=== PATIENT | female | born 1970 | race Caucasian/White ===

== ENCOUNTER → 2017-12-21 | Outpatient (CLI) | payer OTHER ==
--- NOTE | 2017-12-21 09:15 | US ---
EXAMINATION TYPE: US liver DATE OF EXAM: 12/21/2017 COMPARISON: NONE CLINICAL HISTORY: 47-year-old female R94.5 Abnormal Liver Functions studies. ABNORMAL LFT'S, NAUSEA, ABD PRESSURE TECHNIQUE: Multiple sonographic images of the right upper quadrant. FINDINGS: MEMBERSHIP COORDINATOR NOTES: overlying bowel gas limits exam EXAM MEASUREMENTS: Liver Length: 15.4 cm Gallbladder Wall: 0.2 cm CBD: 0.3 cm Right Kidney: 9.3 x 3.6 x 4.4 cm Pancreas: A small portion of the pancreatic body is seen. Remainder suboptimally visualized secondar y to shadowing from bowel gas. Liver: intercostal imaging due to subcostal bowel gas. Limited views show no discrete abnormality. Gallbladder: wnl Evidence for sonographic Botello's sign: no CBD: wnl Right Kidney: limited, especially the lower pole due to bowel gas but appears wnl without hydronephr osis. IMPRESSION: Prominent bowel gas shadowing limiting assessment. No specific abnormality identified in the right up per quadrant.
== END | disposition home or self-care (01) ==
LOC: RADUSWWP 07:19
PROVIDERS: ATTEND Internal Medicine Geriatric Medicine
DX: R94.5 Abnormal results of liver function studies (principal)
CPT/HCPCS: 76705

== ENCOUNTER → 2018-02-07 | Outpatient (CLI) | payer OTHER ==
--- NOTE | 2018-02-07 10:41 | MR ---
EXAMINATION TYPE: MR shoulder RT wo con DATE OF EXAM: 02/07/2018 COMPARISON: None HISTORY: Right shoulder pain TECHNIQUE: Multiplanar, multisequence imaging of the right shoulder is performed without contrast. FINDINGS: Rotator Cuff: there is some increased intrasubstance signal noted posteriorly could possibly represen t a partial thickness tear or tendinopathy of the infraspinatus tendon. Fluid signal is present in th e subacromial subdeltoid bursa. There is a distal acromial spur. Acromioclavicular Joint: Arthropathy causes some mass effect on the musculotendinous junction of supr aspinatus. Glenohumeral Joint: Intact Labrum: The labrum appears grossly intact given limitation of non-arthrogram study, suspect some labr al foramen is present. Biceps Tendon: The long head of biceps is in normal location within bicipital groove. Bone marrow signal: No focal abnormal marrow signal is appreciated. Other: No additional significant abnormality is appreciated. IMPRESSION: Findings suggest tendinopathy, possible partial thickness tear the insertion of the infraspinatus ten don as described.
== END | disposition home or self-care (01) ==
LOC: RADMRIMAIN 08:19
PROVIDERS: ATTEND Nurse Practitioner Family
DX: M25.511 Pain in right shoulder (principal)

== ENCOUNTER → 2018-08-01 | Outpatient (CLI) | payer OTHER ==
--- NOTE | 2018-08-01 10:35 | MM ---
Reason for exam: clinical finding. Last mammogram was performed 4 years and 2 months ago. History: Family history of breast cancer in paternal aunt at age 50. Took hormonal contraceptives for 14 years beginning at age 25. Indicated problem(s): lump or thickening in the left breast. Physical Findings: Nurse Summary: 0.5cm nodule in the right breast at 1 o'clock (nurse chris). MG 3D Diag Mammo W/Cad MIRANDA Bilateral CC and MLO view(s) were taken. Prior study comparison: May 17, 2014, bilateral MG diagnostic mammo w CAD MIRANDA. March 28, 2008, bilateral digital screening mammogram. The breast tissue is heterogeneously dense. This may lower the sensitivity of mammography. No suspicious abnormality. Focal asymmetry in the left upper outer quadrant appears as fibroglandular tissue on 3D. Left breast ultrasound was ordered for a palpable per ordering physician. These results were verbally communicated with the patient and result sheet given to the patient on 08/01/18. ASSESSMENT: Negative, BI-RAD 1 RECOMMENDATION: Routine screening mammogram of both breasts in 1 year.
--- NOTE | 2018-08-01 10:37 | USB ---
Reason for exam: clinical finding. History: Family history of breast cancer in paternal aunt at age 50. Took hormonal contraceptives for 14 years beginning at age 25. Indicated problem(s): lump or thickening in the left breast. US Breast LT Left complete breast ultrasound includes all four quadrants, the retroareolar region and axilla. Finding demonstrates a 0.4 x 0.4 x 0.3cm oval, cystic lesion at 12 o'clock and a 0.5 x 0.5 x 0.5cm oval, cystic lesion at 1 o'clock. These results were verbally communicated with the patient and result sheet given to the patient on 08/01/18. ASSESSMENT: Benign, BI-RAD 2 RECOMMENDATION: Routine screening mammogram of both breasts in 1 year.
== END | disposition home or self-care (01) ==
LOC: RADMAMWWP 07-31 08:29
PROVIDERS: ATTEND Family Medicine
DX: N63.20 Unspecified lump in the left breast, unspecified quadrant (principal)
CPT/HCPCS: 77066; 76641; G0279; 77062

== ENCOUNTER → 2018-10-31 | Outpatient (CLI) | payer OTHER ==
[2018-10-31 18:08] LABS: Basophils # (A) 0.1 k/uL (0-0.2); Basophils % (A) 1 %; Eosinophils # (A) 0.4 k/uL (0-0.7); Eosinophils % (A) 3 %; HCT 44.9 % (34.0-46.0); HGB 14.3 gm/dL (11.4-16.0); Lymphocytes # (A) 2.9 k/uL (1.0-4.8); Lymphocytes % (A) 24 %; MCH 29.7 pg (25.0-35.0); MCHC 31.9 g/dL (31.0-37.0); Mean Platelet Volume 7.4; Monocytes # (A) 0.5 k/uL (0-1.0); Monocytes % (A) 4 %; Neutrophils # (A) 8.1 k/uL (1.3-7.7); Neutrophils % (A) 67 %; Platelet Count 492 k/uL (150-450); RBC 4.83 m/uL (3.80-5.40); RDW 13.1 % (11.5-15.5); WBC 12.2 k/uL (3.8-10.6)
[2018-11-01 00:33] LABS: Albumin 4.2 g/dL (3.80-4.90); Albumin/Globulin Ratio 1.68 (1.60-3.17); Anion Gap 9.7 mmol/L (4.00-12.00); Calcium 9.5 mg/dL (8.7-10.3); Carbon Dioxide 25.3 mmol/L (21.6-31.8); Globulin 2.5 g/dL (1.6-3.3); Total Bilirubin 0.3 mg/dL (0.2-1.2); Total Protein 6.7 g/dL (6.2-8.2)
[2018-11-01 00:41] LABS: T4, Free (Free Thyroxine) 1.1 ng/dL (0.80-1.80)
[2018-11-01 01:26] LABS: Hemoglobin A1C 5.5 % (4.0-6.0)
== END ==
LOC: LABWHC1 17:28
PROVIDERS: ATTEND Family Medicine
DX: E03.9 Hypothyroidism, unspecified (principal); H53.30 Unspecified disorder of binocular vision; R41.3 Other amnesia
CPT/HCPCS: 36415; 80053; 82607; 83036; 84439; 84443; 85025; 86038; 86780

== ENCOUNTER → 2018-11-11 | Outpatient (CLI) | payer OTHER ==
--- NOTE | 2018-11-11 14:27 | MR ---
EXAMINATION TYPE: MR brain wo/w con DATE OF EXAM: 11/11/2018 COMPARISON: NONE HISTORY: Memory loss TECHNIQUE: Multiplanar, multisequence images of the brain and brainstem is performed without and with IV contras t, utilizing 8.5 mL intravenous Gadavist . FINDINGS: Diffusion weighted images demonstrate no evidence of a recent infarct or other diffusion ab normality. There is no worrisome extra-axial fluid collection. The ventricular system and cisternal spaces are normal in size and appearance. The brain volume is age appropriate. There are some scatt ered small and tiny foci T2 hyperintensity seen throughout the white matter bilaterally most prominen t deep and periventricular levels. Approximately 15 scattered lesions are seen with largest lesion is noted axial image 14 bilateral deep parietal lobes. Lesions are nonspecific in appearance and distri bution. Midline structures demonstrate normal morphology. The craniocervical junction appears within normal limits. Post contrast images demonstrate no abnormal enhancement. The dural venous sinuses appear pa tent. The globes are slightly distorted by artifact. Visualized paranasal sinuses are clear. A domina nt Left vertebral artery is noted. Nasal septum is slightly deviated to left of midline. IMPRESSION: Mild nonspecific white matter changes may be on basis of product of chronic small vessel ischemic change. No evidence of a recent infarct. No suspicious enhancement.
== END | disposition home or self-care (01) ==
LOC: RADMRIMAIN 12:28
PROVIDERS: ATTEND Family Medicine
DX: R90.89 Other abnormal findings on diagnostic imaging of central nervous system (principal); R41.3 Other amnesia
CPT/HCPCS: 70553; A9585

== ENCOUNTER → 2018-11-13 | Outpatient (CLI) | payer OTHER ==
--- NOTE | 2018-11-13 15:50 | US ---
EXAMINATION TYPE: US kidneys/renal and bladder DATE OF EXAM: 11/13/2018 COMPARISON: None CLINICAL HISTORY: R31.29 other Microscopic Hematuria. Bilateral lower abd pain that switches. Micros copic hematuria. No hx of renal stones. EXAM MEASUREMENTS: Right Kidney: 9.6 x 4.7 x 4.1 cm Left Kidney: 10.1 x 4.1 x 4.6 cm Right Kidney: No hydronephrosis or masses seen Left Kidney: No hydronephrosis or masses seen Bladder: distended, wnl Bilateral Jets seen There is no evidence for hydronephrosis at this point in time. No nephrolithiasis is seen. No scott s are identified. The urinary bladder is anechoic. Bilateral ureteral jets are seen. IMPRESSION: No hydronephrosis or nephrolithiasis. No suspicious renal mass is seen.
== END | disposition home or self-care (01) ==
LOC: RADUSWWP 14:59
PROVIDERS: ATTEND Family Medicine
DX: R31.29 Other microscopic hematuria (principal)
CPT/HCPCS: 76770

== ENCOUNTER → 2019-02-19 | Outpatient (CLI) | payer OTHER ==
--- NOTE | 2019-02-19 17:07 | XR ---
EXAMINATION TYPE: XR forearm LT, XR wrist complete LT DATE OF EXAM: 02/19/2019 CLINICAL HISTORY: Injury 12 days ago with pain. TECHNIQUE: Two views of the left forearm are obtained. 4 views of left wrist including scaphoid view. COMPARISON: None. FINDINGS: There is no acute fracture or dislocation seen in the left radius or ulna. The left elbow joint appears within normal limits. The overlying soft tissue appears within normal limits. Images of the left wrist show no acute fracture or dislocation. Mild narrowing triscaphe joint. Overl jaqueline soft tissue is unremarkable. IMPRESSION: There is no acute fracture or dislocation seen in the left forearm or wrist.
== END | disposition home or self-care (01) ==
LOC: RADXRMAIN 16:26
PROVIDERS: ATTEND Family Medicine
DX: M79.602 Pain in left arm (principal)

== ENCOUNTER → 2019-07-05 | Outpatient (CLI) | payer OTHER ==
[2019-07-05 10:45] LABS: Basophils # (A) 0.1 k/uL (0-0.2); Basophils % (A) 1 %; Eosinophils # (A) 0.2 k/uL (0-0.7); Eosinophils % (A) 2 %; HCT 47.2 % (34.0-46.0); HGB 15.1 gm/dL (11.4-16.0); Lymphocytes # (A) 1.8 k/uL (1.0-4.8); Lymphocytes % (A) 18 %; MCH 30.3 pg (25.0-35.0); MCHC 31.9 g/dL (31.0-37.0); Mean Platelet Volume 8.1; Monocytes # (A) 0.5 k/uL (0-1.0); Monocytes % (A) 6 %; Neutrophils # (A) 6.9 k/uL (1.3-7.7); Neutrophils % (A) 72 %; Platelet Count 480 k/uL (150-450); RBC 4.97 m/uL (3.80-5.40); RDW 12.2 % (11.5-15.5); WBC 9.6 k/uL (3.8-10.6)
[2019-07-05 10:53] LABS: Appearance,Urine Cloudy (Clear); Bacteria,Urine Rare /hpf; Bilirubin,Urine Negative (Negative); Blood,Urine Moderate (Negative); Color,Urine Yellow; Glucose,Urine (UA) Negative (Negative); Ketones,Urine Trace (Negative); Leukocyte Esterase,Urine Negative (Negative); Mucus,Urine Many /hpf; Nitrite,Urine Negative (Negative); PH, Urine 5.5 (5.0-8.0); Protein,Urine Trace (Negative); RBC,Urine 7 /hpf (0-5); Specific Gravity,Urine 1.023 (1.001-1.035); Squamous Epithelial Cell,Urine 14 /hpf (0-4); Urobilinogen,Urine <2.0 mg/dL (<2.0); WBC,Urine 1 /hpf (0-5)
[2019-07-05 16:28] LABS: African American GFR (CKD) 88.2 (60.0-200.0); Albumin 4.4 g/dL (3.80-4.90); Albumin/Globulin Ratio 1.91 (1.60-3.17); Anion Gap 7.6 mmol/L (4.00-12.00); BUN/Creat Ratio 13.33 Ratio (12.00-20.00); Calcium 9.3 mg/dL (8.7-10.3); Carbon Dioxide 24.4 mmol/L (21.6-31.8); Chol/HDL Ratio 4.49; Globulin 2.3 g/dL (1.6-3.3); LDL Cholesterol,Calculated 149.6 mg/dL (0.0-131.0); Non-African American GFR(CKD) 76.1 (60.0-200.0); Potassium 4.1 mmol/L (3.5-5.5); Total Bilirubin 1.1 mg/dL (0.2-1.2); Total Protein 6.7 g/dL (6.2-8.2); VLDL Calculation 21.4 mg/dL (5.00-40.00)
[2019-07-05 16:35] LABS: T4, Free (Free Thyroxine) 1.4 ng/dL (0.80-1.80)
== END | disposition home or self-care (01) ==
LOC: LABWHC1 09:48
PROVIDERS: ATTEND Family Medicine
DX: E78.2 Mixed hyperlipidemia (principal); E03.9 Hypothyroidism, unspecified; E55.9 Vitamin D deficiency, unspecified; R10.9 Unspecified abdominal pain; R41.3 Other amnesia
CPT/HCPCS: 36415; 80053; 80061; 81001; 82306; 82607; 83690; 84439; 84443; 85025

== ENCOUNTER → 2019-07-12 | Outpatient (CLI) | payer OTHER ==
--- NOTE | 2019-07-12 13:05 | US ---
EXAMINATION TYPE: US abdomen complete DATE OF EXAM: 07/12/2019 COMPARISON: CT dated 12/13/2018 CLINICAL HISTORY: R10.9 Abd pain. pain EXAM MEASUREMENTS: Liver Length: 15.3 cm Gallbladder Wall: 0.2 cm CBD: 0.5 cm Spleen: 10.0 cm Right Kidney: 9.7 x 5.3 x 3.5 cm Left Kidney: 10.8 x 3.7 x 4.3 cm Pancreas: tail obscured by overlying bowel gas Liver: wnl Gallbladder: wnl Evidence for sonographic Botello's sign: neg CBD: wnl Spleen: wnl Right Kidney: No hydronephrosis or masses seen Left Kidney: No hydronephrosis or masses seen Upper IVC: wnl Abd Aorta: No AAA visualized The liver is homogenous. The intrahepatic portion of the IVC and proximal abdominal aorta are within normal limits. There is no evidence of cholelithiasis. Common bile duct is unremarkable. The visu alized portions of the pancreas are homogenous. The spleen is unremarkable. Kidneys are symmetric a nd free of hydronephrosis. No renal lesions are seen. IMPRESSION: Unremarkable exam. No sonographic evidence of cholelithiasis nor acute cholecystitis.
== END | disposition home or self-care (01) ==
LOC: RADUSWWP 12:17
PROVIDERS: ATTEND Family Medicine
DX: R10.9 Unspecified abdominal pain (principal)
CPT/HCPCS: 76700

== ENCOUNTER → 2019-07-21 | Outpatient (CLI) | payer OTHER ==
--- NOTE | 2019-07-21 18:38 | NM ---
EXAMINATION TYPE: NM hepatobiliary w EF DATE OF EXAM: 07/21/2019 COMPARISON: NONE HISTORY: Abdominal pain TECHNIQUE: After the intravenous administration of 3.7 mCi Tc 99m Mebrofenin hepatobiliary scintigrap hy is performed. Immediate images post injection. FINDINGS: There is satisfactory initial accumulation of tracer by the liver. The gallbladder is visualized wit hin 50 minutes. The small bowel activity is noted within 16 minutes. At one hour 8 ounces of oral e nsure plus is given to mimic CCK and gallbladder ejection fraction is calculated at 54 %, in the norm al range. Therefore there is no scintigraphic evidence of cystic or common bile duct obstruction to suggest acute cholecystitis or gallbladder dyskinesia. IMPRESSION: No scintigraphic evidence of acute cholecystitis, chronic cholecystitis, nor biliary dysk inesia.
== END | disposition home or self-care (01) ==
LOC: RADNMMAIN 12:00
PROVIDERS: ATTEND Family Medicine
DX: R10.9 Unspecified abdominal pain (principal)
CPT/HCPCS: 78226; A9537

== ENCOUNTER → 2019-08-02 | Outpatient (CLI) | payer OTHER ==
[2019-08-02 08:39] LABS: Basophils # (A) 0.1 k/uL (0-0.2); Basophils % (A) 1 %; Eosinophils # (A) 0.4 k/uL (0-0.7); Eosinophils % (A) 4 %; HCT 45.5 % (34.0-46.0); HGB 14.2 gm/dL (11.4-16.0); Lymphocytes # (A) 1.8 k/uL (1.0-4.8); Lymphocytes % (A) 16 %; MCH 29.5 pg (25.0-35.0); MCHC 31.3 g/dL (31.0-37.0); MCV 94.2 fL (80.0-100.0); Mean Platelet Volume 8.3; Monocytes # (A) 0.5 k/uL (0-1.0); Monocytes % (A) 5 %; Neutrophils % (A) 73 %; Platelet Count 464 k/uL (150-450); RBC 4.83 m/uL (3.80-5.40); RDW 12.5 % (11.5-15.5)
[2019-08-02 11:14] LABS: Appearance,Urine Clear (Clear); Bilirubin,Urine Negative (Negative); Blood,Urine Large (Negative); Color,Urine Yellow; Glucose,Urine (UA) Negative (Negative); Ketones,Urine Negative (Negative); Protein,Urine 1+ (Negative); Specific Gravity,Urine 1.025 (1.001-1.035); Urobilinogen,Urine <2.0 mg/dL (<2.0)
[2019-08-02 11:15] LABS: Leukocyte Esterase,Urine Negative (Negative); Nitrite,Urine Negative (Negative)
[2019-08-02 11:16] LABS: RBC,Urine 5 /hpf (0-5); WBC,Urine 2 /hpf (0-5)
[2019-08-02 11:17] LABS: Mucus,Urine Few /hpf; Squamous Epithelial Cell,Urine 2 /hpf (0-4)
[2019-08-02 16:08] LABS: African American GFR (CKD) 88.2 (60.0-200.0); Albumin 4.5 g/dL (3.80-4.90); Albumin/Globulin Ratio 2.25 (1.60-3.17); Anion Gap 7.7 mmol/L (4.00-12.00); BUN/Creat Ratio 16.67 Ratio (12.00-20.00); Calcium 9.4 mg/dL (8.7-10.3); Carbon Dioxide 25.3 mmol/L (21.6-31.8); Chol/HDL Ratio 4.25; LDL Cholesterol,Calculated 119.8 mg/dL (0.0-131.0); Non-African American GFR(CKD) 76.1 (60.0-200.0); Potassium 4.4 mmol/L (3.5-5.5); Total Bilirubin 0.8 mg/dL (0.3-1.2); Total Protein 6.5 g/dL (6.2-8.2); VLDL Calculation 23.2 mg/dL (5.00-40.00)
[2019-08-02 16:15] LABS: T4, Free (Free Thyroxine) 1.4 ng/dL (0.80-1.80)
== END | disposition home or self-care (01) ==
LOC: LABWHC1 08:03
PROVIDERS: ATTEND Family Medicine
DX: E03.9 Hypothyroidism, unspecified (principal); M94.0 Chondrocostal junction syndrome [Tietze]; K80.21 Calculus of gallbladder without cholecystitis with obstruction; R31.9 Hematuria, unspecified
CPT/HCPCS: 36415; 80053; 80061; 81001; 82550; 83735; 84439; 84443; 84550; 85025

== ENCOUNTER → 2019-10-29 | Outpatient (CLI) | payer OTHER ==
--- NOTE | 2019-10-29 14:31 | US ---
EXAMINATION TYPE: US pelvic complete DATE OF EXAM: 10/29/2019 COMPARISON: NONE CLINICAL HISTORY: R10.2 pelvic pain. Pain TECHNIQUE: Transabdominal (TA). Transabdominal sonographic images of the pelvis were acquired. EXAM MEASUREMENTS: Uterus: 10.1 x 4.3 x 5.8 cm Endometrial Stripe: .7 cm Right Ovary: 2.1 x 1.0 x 2.2 cm Left Ovary: 2.7 x 1.5 x 1.6 cm 1. Uterus: Anteverted Hypoechoic area seen 1.6 xc 2.2 x 2.2cm. 2. Endometrium: wnl 3. Right Ovary: wnl 4. Left Ovary: wnl 5. Bilateral Adnexa: wnl 6. Posterior cul-de-sac: wnl IMPRESSION: Probable leiomyomatous change of the uterus.
== END | disposition home or self-care (01) ==
LOC: RADUSWWP 13:46
PROVIDERS: ATTEND Family Medicine
DX: R10.2 Pelvic and perineal pain (principal)
CPT/HCPCS: 76856

== ENCOUNTER → 2020-01-14 | Outpatient (CLI) | payer OTHER ==
[2020-01-14 15:40] LABS: Basophils % (A) 0 %; Eosinophils # (A) 0.3 k/uL (0-0.7); Eosinophils % (A) 2 %; HCT 43.7 % (34.0-46.0); HGB 14.1 gm/dL (11.4-16.0); Lymphocytes # (A) 1.7 k/uL (1.0-4.8); Lymphocytes % (A) 14 %; MCH 30.9 pg (25.0-35.0); MCHC 32.3 g/dL (31.0-37.0); MCV 95.7 fL (80.0-100.0); Mean Platelet Volume 8.4; Monocytes # (A) 0.6 k/uL (0-1.0); Monocytes % (A) 5 %; Neutrophils # (A) 9.7 k/uL (1.3-7.7); Neutrophils % (A) 77 %; Platelet Count 450 k/uL (150-450); RBC 4.57 m/uL (3.80-5.40); RDW 12.6 % (11.5-15.5); WBC 12.5 k/uL (3.8-10.6)
[2020-01-15 00:53] LABS: Erythrocyte Sedimentation Rate 4 mm/Hr (0-20)
[2020-01-15 01:54] LABS: African American GFR (CKD) 88.2 (60.0-200.0); Albumin/Globulin Ratio 1.74 (1.60-3.17); Anion Gap 7.8 mmol/L (4.00-12.00); BUN/Creat Ratio 13.33 Ratio (12.00-20.00); C Reactive Protein 1.1 mg/dL (0.0-0.8); Calcium 9.2 mg/dL (8.7-10.3); Carbon Dioxide 23.2 mmol/L (21.6-31.8); Chol/HDL Ratio 4.07; Globulin 2.3 g/dL (1.6-3.3); LDL Cholesterol,Calculated 90.6 mg/dL (0.0-131.0); Non-African American GFR(CKD) 76.1 (60.0-200.0); Potassium 4.4 mmol/L (3.5-5.5); Total Bilirubin 0.8 mg/dL (0.3-1.2); Total Protein 6.3 g/dL (6.2-8.2); VLDL Calculation 47.4 mg/dL (5.00-40.00)
[2020-01-15 02:01] LABS: T4, Free (Free Thyroxine) 1.2 ng/dL (0.80-1.80)
[2020-01-15 06:40] LABS: Gliadin AB IgA, Deaminated NEGATIVE (NEGATIVE); Gliadin AB IgA, Unit <0.2 U/mL; Gliadin AB IgG, Deaminated NEGATIVE (NEGATIVE)
== END | disposition home or self-care (01) ==
LOC: LABWHC1 14:40
PROVIDERS: ATTEND Family Medicine
DX: R19.7 Diarrhea, unspecified (principal); E03.9 Hypothyroidism, unspecified; E78.2 Mixed hyperlipidemia
CPT/HCPCS: 36415; 80053; 80061; 83516; 84439; 84443; 85025; 85652; 86140; 87045; 87046; 87324; 87328; 87329

== ENCOUNTER → 2020-07-08 | Outpatient (CLI) | payer OTHER ==
[2020-07-08 08:10] LABS: Basophils # (A) 0.1 k/uL (0-0.2); Basophils % (A) 1 %; Eosinophils # (A) 0.3 k/uL (0-0.7); Eosinophils % (A) 2 %; HCT 43.5 % (34.0-46.0); HGB 14.3 gm/dL (11.4-16.0); Lymphocytes # (A) 2.1 k/uL (1.0-4.8); Lymphocytes % (A) 16 %; MCHC 32.9 g/dL (31.0-37.0); MCV 94.1 fL (80.0-100.0); Mean Platelet Volume 7.6; Monocytes # (A) 0.7 k/uL (0-1.0); Monocytes % (A) 5 %; Neutrophils # (A) 10.3 k/uL (1.3-7.7); Neutrophils % (A) 75 %; Platelet Count 419 k/uL (150-450); RBC 4.62 m/uL (3.80-5.40); RDW 12.7 % (11.5-15.5); WBC 13.8 k/uL (3.8-10.6)
[2020-07-08 09:35] LABS: Erythrocyte Sedimentation Rate 5 mm/hr (0-20)
[2020-07-08 13:00] LABS: African American GFR (CKD) 77.2 (60.0-200.0); Albumin 4.2 g/dL (3.80-4.90); Anion Gap 6.8 mmol/L (4.00-12.00); C Reactive Protein 0.5 mg/dL (0.0-0.8); Calcium 9.1 mg/dL (8.7-10.3); Carbon Dioxide 25.2 mmol/L (21.6-31.8); Chol/HDL Ratio 3.89; Globulin 2.1 g/dL (1.6-3.3); Magnesium 1.9 mg/dL (1.5-2.4); Non-African American GFR(CKD) 66.6 (60.0-200.0); Potassium 4.5 mmol/L (3.5-5.5); Total Bilirubin 0.7 mg/dL (0.3-1.2); Total Protein 6.3 g/dL (6.2-8.2)
[2020-07-08 13:08] LABS: T4, Free (Free Thyroxine) 1.1 ng/dL (0.80-1.80)
[2020-07-08 13:49] LABS: Immunoglobulin M 76.7 mg/dL (40.0-280.0)
[2020-07-08 17:13] LABS: Immunoglobulin E 9.34 IU/mL (0.00-114.00)
[2020-07-09 11:29] LABS: Protein, Total 6.3 g/dL (6.2-8.2)
[2020-07-09 13:38] LABS: Albumin 3.67 g/dL (3.80-4.90); Gamma Globulin 1.14 g/dL (0.70-1.50)
== END | disposition home or self-care (01) ==
LOC: LABWHC1 07:39
PROVIDERS: ATTEND Family Medicine
DX: R19.7 Diarrhea, unspecified (principal); E03.9 Hypothyroidism, unspecified; E78.2 Mixed hyperlipidemia; K58.0 Irritable bowel syndrome with diarrhea
CPT/HCPCS: 36415; 80053; 80061; 82607; 82784; 82785; 83735; 84165; 84439; 84443; 85025; 85652; 86140

== ENCOUNTER 2020-07-23 09:14 | Day surgery (SDC) | payer OTHER ==
[2020-07-21 13:54] VITALS: BMI 32.1
[~2020-07-23 09:14] MED LIST: LACTATED RINGERS 1,000 ML IV SCH
[2020-07-23 09:35] VITALS: TEMP 98.1
[2020-07-23] MEDS ORDERED: PROPOFOL 10 MG/ML 20 ML VIAL IV ONE (10:55)
--- NOTE | 2020-07-23 11:07 | P.PCN ---
Date of Procedure: 07/23/20 Procedure(s) Performed: BRIEF HISTORY: Patient is a 50-year-old pleasant white female scheduled for an elective colonoscopy as a part of evaluation of chronic diarrhea for the last several months duration. PROCEDURE PERFORMED: Colonoscopy with random biopsies. PREOPERATIVE DIAGNOSIS: Chronic diarrhea. IV sedation per Anesthesia. PROCEDURE: After informed consent was obtained, the patient, was brought into the endoscopy unit. IV sedation was administered by Anesthesia under continuous monitoring. Digital rectal examination was normal. Initially the Olympus CF-160 flexible video colonoscope was then inserted in the rectum, gradually advanced into the cecum without any difficulty. Careful examination was performed as the scope was gradually being withdrawn. Ileocecal valve and the appendiceal orifice were visualized and appeared normal. Prep was excellent. Mucosa of the cecum, ascending colon, transverse colon, descending colon, sigmoid colon, and rectum appeared normal. Random biopsies were done from ascending and descending colon to rule out microscopic/collagenous colitis. Retroflexion was performed in the rectum and no lesions were seen. The patient tolerated the procedure well. IMPRESSION: Normal-appearing colon from rectum to cecum with no evidence of colitis or colorectal neoplasia . RECOMMENDATIONS: Findings of this examination were discussed with the patient as well as a family. She was advised to follow with the biopsy results. She'll be seen in office in 3-4 weeks..
[2020-07-23 11:33] VITALS: BP 99/66; PULSE 77; RESP 16
== END 2020-07-23 12:20 | disposition home or self-care (01) ==
LOC: ORWHC2ENDO 09:14
PROVIDERS: ATTEND Internal Medicine Gastroenterology
DX: K52.9 Noninfective gastroenteritis and colitis, unspecified (principal); R19.4 Change in bowel habit; F32.9 Major depressive disorder, single episode, unspecified; Z90.89 Acquired absence of other organs; Z79.890 Hormone replacement therapy; Z79.899 Other long term (current) drug therapy
CPT/HCPCS: 81025; 88305; 45380; J2704

== ENCOUNTER → 2020-09-24 | Outpatient (CLI) | payer OTHER ==
[2020-09-24 15:51] LABS: Basophils # (A) 0.05 X 10*3/uL (0.00-0.10); Basophils % (A) 0.6 %; Eosinophils # (A) 0.28 X 10*3/uL (0.04-0.35); Eosinophils % (A) 3.2 %; HCT 43.5 % (37.2-46.3); HGB 13.6 g/dL (12.0-15.0); Lymphocytes # (A) 1.82 X 10*3/uL (0.90-5.00); Lymphocytes % (A) 20.6 %; MCH 30.7 pg (27.0-32.0); MCHC 31.3 g/dL (32.0-37.0); MCV 98.2 fL (80.0-97.0); Monocytes # (A) 0.77 X 10*3/uL (0.20-1.00); Monocytes % (A) 8.7 %; Neutrophils # (A) 5.87 X 10*3/uL (1.80-7.70); Neutrophils % (A) 66.6 %; Platelet Count 455 X 10*3/uL (140-440); RBC 4.43 X 10*6/uL (4.10-5.20); RDW 13.5 % (11.5-14.5); WBC 8.82 X 10*3/uL (4.50-10.00)
[2020-09-24 17:33] LABS: African American GFR (CKD) 87.6 (60.0-200.0); Albumin 4.2 g/dL (3.80-4.90); Anion Gap 9.4 mmol/L (4.00-12.00); BUN/Creat Ratio 15.56 Ratio (12.00-20.00); Calcium 9.3 mg/dL (8.7-10.3); Carbon Dioxide 22.6 mmol/L (21.6-31.8); Globulin 2.1 g/dL (1.6-3.3); Non-African American GFR(CKD) 75.6 (60.0-200.0); Potassium 4.2 mmol/L (3.5-5.5); Total Bilirubin 0.5 mg/dL (0.3-1.2); Total Protein 6.3 g/dL (6.2-8.2)
[2020-09-24 17:41] LABS: T4, Free (Free Thyroxine) 1.2 ng/dL (0.80-1.80)
[2020-09-24 17:43] LABS: Hepatitis A Antibody IgM Non-Reactive (Non-Reactive); Hepatitis B Core IgM Non-Reactive (Non-Reactive); Hepatitis B Surface Antigen Non-Reactive (Non-Reactive); Hepatitis C IgG Antibody Non-Reactive (Non-Reactive)
== END | disposition home or self-care (01) ==
LOC: LABWHC1 07:11
PROVIDERS: ATTEND Family Medicine
DX: Z01.419 Encounter for gynecological examination (general) (routine) without abnormal findings (principal); E03.9 Hypothyroidism, unspecified; R74.01 Elevation of levels of liver transaminase levels
CPT/HCPCS: 36415; 80053; 80074; 84439; 84443; 85025

== ENCOUNTER → 2020-09-25 | Outpatient (CLI) | payer OTHER ==
--- NOTE | 2020-09-29 11:53 | MM ---
Reason for exam: screening (asymptomatic). Last mammogram was performed 2 years and 2 months ago. History: Family history of breast cancer in paternal aunt at age 50. Took hormonal contraceptives for 14 years beginning at age 25. Physical Findings: A clinical breast exam by your physician is recommended on an annual basis and results should be correlated with mammographic findings. MG Screening Mammo w CAD Bilateral CC and MLO view(s) were taken. Prior study comparison: August 01, 2018, bilateral MG 3d diag mammo w/cad MIRANDA. May 17, 2014, bilateral MG diagnostic mammo w CAD MIRANDA. The breast tissue is heterogeneously dense. This may lower the sensitivity of mammography. No significant changes when compared with prior studies. ASSESSMENT: Benign, BI-RAD 2 RECOMMENDATION: Routine screening mammogram of both breasts in 1 year.
== END | disposition home or self-care (01) ==
LOC: RADMAMWWP 07:53
PROVIDERS: ATTEND Family Medicine
DX: Z12.31 Encounter for screening mammogram for malignant neoplasm of breast (principal); Z80.3 Family history of malignant neoplasm of breast
CPT/HCPCS: 77067

== ENCOUNTER → 2021-01-05 | Outpatient (CLI) | payer OTHER ==
[2021-01-05 19:33] LABS: ALT 19 U/L (8-44); AST 16 U/L (13-35); African American GFR (CKD) 77.2 (60.0-200.0); Albumin/Globulin Ratio 1.68 (1.60-3.17); Alkaline Phosphatase 41 U/L (41-126); C Reactive Protein <0.4 mg/dL (0.0-0.8); Calcium 9.2 mg/dL (8.7-10.3); Carbon Dioxide 25.8 mmol/L (21.6-31.8); Chloride 107 mmol/L (96-109); Chol/HDL Ratio 3.15; Cholesterol 173 mg/dL (0-200); Globulin 2.5 g/dL (1.6-3.3); Glucose 107 mg/dL (70-110); LDL Cholesterol,Calculated 95.8 mg/dL (0.0-131.0); Non-African American GFR(CKD) 66.6 (60.0-200.0); Potassium 4.3 mmol/L (3.5-5.5); Sodium 141 mmol/L (135-145); Total Bilirubin 0.9 mg/dL (0.3-1.2); Total Protein 6.7 g/dL (6.2-8.2)
[2021-01-05 20:10] LABS: Basophils # (A) 0.04 X 10*3/uL (0.00-0.10); Basophils % (A) 0.6 %; Eosinophils # (A) 0.15 X 10*3/uL (0.04-0.35); Eosinophils % (A) 2.1 %; HCT 42.8 % (37.2-46.3); HGB 13.5 g/dL (12.0-15.0); Lymphocytes % (A) 22.7 %; MCHC 31.5 g/dL (32.0-37.0); MCV 98.4 fL (80.0-97.0); Mean Platelet Volume 11.1 fL (9.5-12.2); Monocytes # (A) 0.67 X 10*3/uL (0.20-1.00); Monocytes % (A) 9.5 %; Neutrophils # (A) 4.56 X 10*3/uL (1.80-7.70); Neutrophils % (A) 64.8 %; Platelet Count 508 X 10*3/uL (140-440); RBC 4.35 X 10*6/uL (4.10-5.20); WBC 7.04 X 10*3/uL (4.50-10.00)
[2021-01-05 21:38] LABS: Erythrocyte Sedimentation Rate 4 mm/Hr (0-20)
== END | disposition home or self-care (01) ==
LOC: LABWHC1 14:18
PROVIDERS: ATTEND Family Medicine
DX: K58.0 Irritable bowel syndrome with diarrhea (principal); E03.9 Hypothyroidism, unspecified; E78.2 Mixed hyperlipidemia
CPT/HCPCS: 36415; 80053; 80061; 84439; 84443; 85025; 85652; 86140

== ENCOUNTER → 2021-04-06 | Outpatient (CLI) | payer OTHER ==
[2021-04-06 10:40] LABS: Basophils # (A) 0.1 k/uL (0-0.2); Basophils % (A) 1 %; Eosinophils # (A) 0.1 k/uL (0-0.7); Eosinophils % (A) 1 %; HCT 44.6 % (34.0-46.0); HGB 14.3 gm/dL (11.4-16.0); Lymphocytes # (A) 1.5 k/uL (1.0-4.8); Lymphocytes % (A) 18 %; MCH 31.6 pg (25.0-35.0); MCV 98.7 fL (80.0-100.0); Mean Platelet Volume 8.1; Monocytes # (A) 0.4 k/uL (0-1.0); Monocytes % (A) 5 %; Neutrophils # (A) 6.2 k/uL (1.3-7.7); Neutrophils % (A) 74 %; Platelet Count 427 k/uL (150-450); RBC 4.52 m/uL (3.80-5.40); WBC 8.3 k/uL (3.8-10.6)
[2021-04-06 13:54] LABS: Erythrocyte Sedimentation Rate 2 mm/hr (0-20)
[2021-04-06 16:44] LABS: Protein, Total 6.6 g/dL (6.2-8.2)
[2021-04-06 23:43] LABS: BUN/Creat Ratio 15.52 Ratio (12.00-20.00); Blood Urea Nitrogen 13.7 mg/dL (9.0-27.0); Carbon Dioxide 18.9 mmol/L (21.6-31.8); Chloride 109 mmol/L (96-109); Glucose 99 mg/dL (70-110); Potassium 4.3 mmol/L (3.5-5.5); Sodium 144 mmol/L (135-145)
[2021-04-06 23:44] LABS: ALT 18 U/L (8-44); AST 14 U/L (13-35); African American GFR (CKD) 89.7 (60.0-200.0); Albumin 4.3 g/dL (3.8-4.9); Alkaline Phosphatase 43 U/L (41-126); Calcium 9.4 mg/dL (8.7-10.3); Globulin 2.2 g/dL (1.6-3.3); Lipase 82 U/L (14-63); Non-African American GFR(CKD) 77.4 (60.0-200.0); Total Protein 6.5 g/dL (6.2-8.2)
[2021-04-07 00:06] LABS: C Reactive Protein <0.30 mg/dL (0.00-0.80)
[2021-04-07 15:15] LABS: Albumin 4.14 g/dL (3.80-4.90); Gamma Globulin 1.09 g/dL (0.70-1.50)
== END | disposition home or self-care (01) ==
LOC: LABWHC1 09:39
PROVIDERS: ATTEND Family Medicine
DX: D69.1 Qualitative platelet defects (principal); E03.9 Hypothyroidism, unspecified; R11.0 Nausea; R68.81 Early satiety
CPT/HCPCS: 36415; 80053; 83690; 84165; 84439; 84443; 85025; 85652; 86140; 86334

== ENCOUNTER → 2023-08-04 | Outpatient (CLI) | payer OTHER ==
[2023-08-04 15:55] LABS: Basophils # (A) 0.04 X 10*3/uL (0.00-0.10); Basophils % (A) 0.5 %; Eosinophils # (A) 0.27 X 10*3/uL (0.04-0.35); Eosinophils % (A) 3.5 %; HCT 41.7 % (37.2-46.3); HGB 13.3 g/dL (12.0-15.0); Lymphocytes # (A) 2.13 X 10*3/uL (0.90-5.00); Lymphocytes % (A) 27.7 %; MCH 30.9 pg (27.0-32.0); MCHC 31.9 g/dL (32.0-37.0); Mean Platelet Volume 10.9 FL (9.5-12.2); Monocytes # (A) 0.77 X 10*3/uL (0.20-1.00); NRBC Per 100 WBC 0 X 10*3/uL (0.00-0.01); Neutrophils # (A) 4.45 X 10*3/uL (1.80-7.70); Neutrophils % (A) 57.9 %; Platelet Count 470 X 10*3/uL (140-440); RDW 13.2 % (11.5-14.5); WBC 7.69 X 10*3/uL (4.50-10.00)
[2023-08-04 17:10] LABS: Chol/HDL Ratio 2.68 Ratio; VLDL Calculation 12.94 mg/dL (5.00-40.00)
[2023-08-04 17:11] LABS: ALT 48 U/L (8-44); AST 26 U/L (13-35); Albumin/Globulin Ratio 1.67 Ratio (1.60-3.17); Alkaline Phosphatase 56 U/L (41-126); Blood Urea Nitrogen 12.7 mg/dL (9.0-27.0); Carbon Dioxide 24.5 mmol/L (21.6-31.8); Chloride 107 mmol/L (96-109); Globulin 2.4 g/dL (1.6-3.3); Glucose 86 mg/dL (70-110); LDL Cholesterol,Calculated 92.5 mg/dL (0.0-131.0); Potassium 4.4 mmol/L (3.5-5.5); Sodium 141 mmol/L (135-145); T4, Free (Free Thyroxine) 1.31 ng/dL (0.80-1.80); Total Bilirubin 0.5 mg/dL (0.3-1.2); Total Protein 6.4 g/dL (6.2-8.2)
== END | disposition home or self-care (01) ==
LOC: LABWHC1 07:50
PROVIDERS: ATTEND Family Medicine
DX: E03.9 Hypothyroidism, unspecified (principal); E78.2 Mixed hyperlipidemia; E53.8 Deficiency of other specified B group vitamins
CPT/HCPCS: 36415; 80053; 80061; 82607; 84439; 84443; 85025

== ENCOUNTER → 2023-08-08 | Outpatient (CLI) | payer OTHER ==
--- NOTE | 2023-08-09 20:08 | MM ---
Reason for Exam: Screening (asymptomatic). Last screening mammogram was performed 12 month(s) ago. Patient History: Menarche at age 15. First Full-Term at age 30. Perimenopausal. Patient has history of breast feeding. Hormonal Contraceptives for 14 years from age 25 until age 39. Paternal aunt had breast cancer, age 50. Last menstrual period: 07/22/2023 Risk Values: Ximena 5 year model risk: 1.1%. NCI Lifetime model risk: 9.7%. Prior Study Comparison: 05/17/2014 Bilateral Diagnostic Mammogram, [facility]. 08/01/2018 Bilateral Diagnostic Mammogram, [facility]. 09/25/2020 Bilateral Screening Mammogram, [facility]. 08/03/2022 Bilateral MG screening mammo w CAD, [facility]. Tissue Density: The breast tissue is heterogeneously dense. This may lower the sensitivity of mammography. Findings: Analyzed By CAD. In the left breast, asymmetric density in the central posterior aspect remains unchanged. Asymmetric density lateral aspect of the right breast at a middle depth is more defined. This may represent superimposition shadow but further evaluation is recommended. Otherwise, no significant change. Overall Assessment: Incomplete: need additional imaging evaluation, BI-RAD 0 Management: Special View Mammogram of the right breast. Diagnostic Breast Ultrasound of the right breast. Additional views to include spot 3-D CC, 3-D CC rolled, and 3-D ML views. Targeted right breast ultrasound if any persisting abnormality. [facility] will attempt to contact patient to return for supplemental views and ultrasound if indicated. Electronically signed and approved by: Delores Pulliam M.D. Radiologist
== END | disposition home or self-care (01) ==
LOC: RADMAMWWP 08:44
PROVIDERS: ATTEND Family Medicine
DX: Z12.31 Encounter for screening mammogram for malignant neoplasm of breast (principal); Z80.3 Family history of malignant neoplasm of breast
CPT/HCPCS: 77067

== ENCOUNTER → 2023-08-11 | Outpatient (CLI) | payer OTHER ==
--- NOTE | 2023-08-11 14:04 | MM ---
Reason for Exam: Additional evaluation requested from abnormal screening. Last screening mammogram was performed less than 1 month ago. Patient History: Menarche at age 15. First Full-Term at age 30. Perimenopausal. Patient has history of breast feeding. Hormonal Contraceptives for 14 years from age 25 until age 39. Paternal aunt had breast cancer, age 50. Risk Values: Ximena 5 year model risk: 1.1%. NCI Lifetime model risk: 9.7%. Prior Study Comparison: 09/25/2020 Bilateral Screening Mammogram, [facility]. 08/03/2022 Bilateral MG screening mammo w CAD, [facility]. 08/08/2023 Bilateral MG screening mammo w CAD, [facility]. Tissue Density: Right: The breast tissue is heterogeneously dense. This may lower the sensitivity of mammography. Findings: Analyzed By CAD. Nodular dense appearing tissue persists on the spot compression CC view but becomes less defined on the rolled view. Some focal dense tissue is noted superiorly on the true lateral view. No well-defined mass is seen. Further ultrasound evaluation recommended. Overall Assessment: Incomplete: need additional imaging evaluation, BI-RAD 0 Management: Diagnostic Breast Ultrasound of the right breast. Upper outer quadrant. Electronically signed and approved by: Delores Pulliam M.D. Radiologist
--- NOTE | 2023-08-11 14:57 | USB ---
Reason for Exam: Additional evaluation requested from prior study. Patient History: Menarche at age 15. First Full-Term at age 30. Perimenopausal. Patient has history of breast feeding. Hormonal Contraceptives for 14 years from age 25 until age 39. Paternal aunt had breast cancer, age 50. Risk Values: Ximena 5 year model risk: 1.1%. NCI Lifetime model risk: 9.7%. Technique: Method: Targeted. Prior Study Comparison: 09/25/2020 Bilateral Screening Mammogram, [facility]. 08/03/2022 Bilateral MG screening mammo w CAD, [facility]. 08/08/2023 Bilateral MG screening mammo w CAD, [facility]. Findings: The upper outer quadrant of the right breast, the axilla of the right breast and the retroareolar of the right breast were scanned. Targeted ultrasound right breast upper outer quadrant 9:00 to 12:00 including scanning of the subareolar region and axilla. Dense tissue is present. Some interspersed cysts or cyst clusters, particularly at the 11:00 position, 5 cm from the nipple with approximately three ranging in size from 4 mm to 7 mm. Likely mammographic correlate. Six-month follow-up mammogram can be performed. In addition, there is a cyst with debris measuring 9 x 7 x 3 mm in the subareolar region. No other solid or cystic lesion. Overall Assessment: Probably benign, BI-RAD 3 Management: Diagnostic Mammogram of the right breast in 6 months. A clinical breast exam by your physician is recommended on an annual basis and results should be correlated with mammographic findings. This exam should not preclude additional follow-up of suspicious palpable abnormalities. Results were given to the patient verbally at the time of exam. Electronically signed and approved by: Delores Pulliam M.D. Radiologist
== END | disposition home or self-care (01) ==
LOC: RADMAMWWP 13:32
PROVIDERS: ATTEND Family Medicine
DX: N60.11 Diffuse cystic mastopathy of right breast (principal); R92.331 Mammographic heterogeneous density, right breast; Z80.3 Family history of malignant neoplasm of breast
CPT/HCPCS: 77065

== ENCOUNTER → 2024-10-30 | Outpatient (CLI) | payer OTHER ==
--- NOTE | 2024-10-31 12:08 | XR ---
EXAMINATION TYPE: XR cervical spine 5 views comp DATE OF EXAM: 10/30/2024 4:20 PM COMPARISON: None CLINICAL INDICATION: Female, 54 years old with history of M54.12 RADICULOPATHY CERVICAL; PHH, pain FINDINGS: Mild facet and uncovertebral joint arthropathy, right greater than left. Changes result in mild bony neural foraminal narrowing on the right at C5-C6. Mild degenerative disc disease and endplate spondyl osis C5-C6. There is grade 1 anterolisthesis C7-T1. No predental space widening or prevertebral soft tissue swelling. Normal odontoid view. IMPRESSION: Mild spondylotic change greatest at C5-C6 with mild bony neuroforaminal narrowing on the right at thi s level. Degenerative trace grade 1 anterolisthesis C7-T1. [facility], , 10/31/2024 8:02 AM
== END | disposition home or self-care (01) ==
LOC: RADXRMAIN 15:54
PROVIDERS: ATTEND Family Medicine
DX: M50.122 Cervical disc disorder at C5-C6 level with radiculopathy (principal); M47.22 Other spondylosis with radiculopathy, cervical region; M43.12 Spondylolisthesis, cervical region
CPT/HCPCS: 72050

== ENCOUNTER → 2024-12-31 | Outpatient (CLI) | payer OTHER ==
[2024-12-31 11:24] VITALS: BP 137/75; PULSE 54; RESP 16; TEMP 97
--- NOTE | 2024-12-31 17:28 | P.PAINPG ---
PQRS Measure Charge Sheet Comment: HISTORY OF PRESENT ILLNESS: A 54 yr old female as a referral from Dr Riggs presents today w severe and chronic neck pain > 3 mo secondary to radiculopathy, spondylosis and facet arthropathy without myelopathy for evaluation. Pt states pain level is provoked at 2-10 /10 in intensity, constant, localized in the cervical spine, predominantly axial, sore in character w occasional shooting pain towards the hands. Pain is provoked by rotation. Pain is alleviated by PT x 6 wks which ended in Nov 2024, physician guided home exercises 4-5 times weekly since Nov 2024, heat, ice, medications, topical, repositioning and rest . Cervical disability score at 20. PMH: OA, Vitamin D Deficiency, Hypothyroidism, MDD PSH: Denies SH: Occ tobacco use, Occ ETOH use, Cannabis use FH: Non contributory All: See list Medications include Neurontin 100mg, Ibu, CBD Oil, BioFreeze, THC Gummies REVIEW OF ORGAN SYSTEMS: CONSTITUTIONAL: No fevers or chills. No recent weight loss. NEUROLOGICAL: + numbness and tingling along the distal extremities. No seizure disorders or headaches. MUSCULOSKELETAL: + pain PSYCHIATRIC: Denies current depression or suicidal thoughts. Physical Examinations : Constitutional : Cooperative , not in acute distress . Neurologic : Cranial nerve II to XII intact. No focal neurological deficits. Psychiatric : alert & oriented x 3. Matching mood & appropriate affect. Judgment & insight intact. Musculoskeletal : Cervical Spine Motor strength in the deltoid and biceps: Normal right side. Normal Left side Motor strength biceps and the wrist extensors: Normal right side . Normal left side Motor strength in the triceps muscle: Normal right side. Normal left side Deep tendon reflexes: Normal at the biceps. Normal at Brachioradialis. Normal at triceps Lhermitte Sign (cervical flexion) positive Vertebral body tenderness to deep palpation over C6 Cervical facet loading test: positive bilaterally Spurling test: positive bilaterally Neck distraction test: positive bilaterally C6-C7 Stefania sign: positive bilaterally Shoulders Muscle bulk/ tone/ strength BL Resisted Internal Rotation positive R / positive L Resisted External Rotation positive R / positive L Empty Can Test positive R / positive L Drop Arm Test positive R / positive L Lumbar spine Motor strength lower extremities ,thigh and legs 5/5 Right side , 5/5 Left side Deep tendon reflexes : Normal Knee Jerk. Normal Ankle Jerk Vertebral body tenderness over Resendiz Test positive Lumbar facet Loading Test: positive Right / positive Left Range of motion of the lumbar spine Flexion 30 degrees, extension 10 degrees Straight Leg Raise test: Left/ Right positive at degrees Drop foot reflex: positive R / positive L Orsa test: positive right / positive left. Severe tenderness over the Sacroiliac joint on the Right / Left sides Gaenslen test: positive bilaterally Sacral spine : Severe tenderness over the Sacroiliac joint: right side / left side Range of motion: Flexion of the lumbar spine <60 degrees Range of motion: Extension of the lumbar spine <20 degrees Gaenslen's Test positive Rosa test: positive right side / left side Thigh Thrust Test Sacral Thrust Test Hip Joint Antalgic walking gait positive Trendelenburg positive R / positive L Imaging: MRI non contrast cervical spine from 11/02/24 reviewed Assessment/ Plan : C5-C6 radiculopathy Recommendation of GUMARO C6-C7 #1. Risks, benefits of procedure discussed and patient verbalized understanding. Admits to anti- coagulant use or medical history of diabetes. Protocol for discontinuation/ continuation of medications kamilah procedure discussed. All questions answered. I have spent greater than 30 minutes on patient care today. Dr López was available by phone for the evaluation of this patient. The time was used to review the medical records including relevant urine studies and Prescription history (MAPs), review of the available imaging, evaluation and examination of the patient, coordination of care with the medical staff and if applicable referring physicians, as well as creation of the medical record Home Medications: Ambulatory Orders Dicyclomine [Bentyl] 10 mg PO TID PRN 07/21/20 Ergocalciferol (Vitamin D2) [Vitamin D2 (2000 Iu)] 50 mcg PO DAILY 07/21/20 L.acidoph,Paracasei, B.lactis [Probiotic] 1 each PO DAILY 07/21/20 Levothyroxine Sodium [Synthroid] 75 mcg PO DAILY 07/21/20 Sertraline [Zoloft] 50 mg PO QAM 07/21/20 Tumeric 1 tab PO DAILY 07/21/20 Controlled Substance Measures - Controlled Substance Measures Is patient prescribed a controlled substance at discharge?: No
== END ==
LOC: PNWHC3 10:47
PROVIDERS: ATTEND Specialist
DX: M47.22 Other spondylosis with radiculopathy, cervical region (principal); Z88.1 Allergy status to other antibiotic agents; Z88.8 Allergy status to other drugs, medicaments and biological substances
CPT/HCPCS: 99211